=== PATIENT | female | born 2000 | race Hispanic/Latino ===

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

== ENCOUNTER 2022-05-07 13:27 | Emergency (ER) | payer MEDICAID, OTHER, SELFPAY | END 2022-05-07 14:43 | disposition home or self-care (01) | LOC: ERS 13:27 | DX: L05.91 Pilonidal cyst without abscess (principal) | CPT/HCPCS: 99282 ==

== ENCOUNTER 2022-05-09 16:19 | Emergency (ER) | payer MEDICAID, SELFPAY ==
[2022-05-09] MEDS ORDERED: Lidocaine 2% PF 5 ML VIAL ONE ×2 (17:08→17:15)
[2022-05-09] MEDS ORDERED: Diazepam 5 MG TAB ONE (17:09)
[2022-05-09] MEDS ORDERED: Bacitracin 1 PK ONE (17:33)
== END 2022-05-09 18:00 | disposition home or self-care (01) ==
LOC: ERS 16:19
DX: L05.01 Pilonidal cyst with abscess (principal)
CPT/HCPCS: 10080; J2001